=== PATIENT | male | born 1940 | race Caucasian/White ===

== ENCOUNTER → 2017-04-05 | Outpatient (CLI) | payer OTHER ==
[~2017-04-05] MED LIST: ACETAMINOPHEN325 M1 PO; ADULT LOW DOSE81 MG PO; ADULTS' DAILY1 EACH PO; ALLEGRA180 MG PO; ALLEGRA60 MG PO; ASPIRIN EC325 M1 PO; ASPIRIN EC81 M1 PO; ASPIRIN325 PO; ATORVASTATIN CA40 MG PO; BETAPACE AF80 MG PO; CARVEDILOL12.5 MG PO; CARVEDILOL25 MG PO; CINNAMON PLUS1 EACH PO; CINNAMON PO; CIPROFLOXACIN500 M3 PO; CLARITIN10 M3 PO; COLACE 100 MG100 MG PO; COREG PO; COREG25 MG PO; EFFIENT10 MG PO; FISH OIL 1,0001 EAC5 PO; FLOMAX PO; FLONASE 0.05%50 MCG NASAL; FLOVENT HFA 1110 MCG INH; FOLIC ACID1 MG PO; GLUCOSAMINE CH1 EAC2 PO; IRBESARTAN75 MG PO; LIPITOR40 MG PO; NEXIUM40 MG PO; NITROGLYCERIN0.4 MG SL; NORCO 5-325 TA1 EACH PO; PACERONE 200 M200 M1 PO; PEPCID AC20 M1 PO; PHENERGAN 25 MG25 M1 PO; PRINIVIL20 MG PO; PROTONIX40 M2 PO; SIMVASTATIN40 MG PO; TAMSULOSIN HCL0.4 M1 PO; TRICOR145 MG PO; VALACYCLOVIR1000 MG PO; VITAMIN E400 UNIT PO; ZANTAC 150MG T150 MG PO; ZOCOR40 MG PO; ZPAK PO
== END ==
LOC: NUC 08:22
DX: I25.5 Ischemic cardiomyopathy (principal)

== ENCOUNTER → 2017-08-08 | Outpatient (CLI) | payer OTHER ==
--- NOTE | ~2017-08-08 | 2DMMODE ---
[facility] [place] [address] 2 D/M-MODE ECHOCARDIOGRAM Name: MIKHAILSYMONEEVATATUM Gonzalez Room #: REG [facility]#: [id number] Admission: 08/08/17 Attend Phys: Josh Stanley, Discharge: Date of : 44 Date of Service: 08/08/17 1121 Report #: [id number] THIS REPORT FOR: //name// APPROVED REPORT Study performed: 08/08/2017 09:56:24 EXAM: Comprehensive 2D, Doppler, and color-flow Echocardiogram Patient Location: Out-Patient Status: routine BSA: 2.12 HR: 54 bpm BP: 125/65 mmHg Rhythm: NSR Other Information Study Quality: Good Indications ASHBY, ISCM. 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 Time: 237.49 ms MV E Max Jose Angel.: 1.23 m/s [facility] [place] [address] 2 D/M-MODE ECHOCARDIOGRAM Name: TATUM BLACKWELL Room #: [facility] Lyndsay#: [id number] Admission: 08/08/17 Attend Phys: Josh Stanley, Discharge: Date of : 44 Date of Service: 08/08/17 1121 Report #: [id number] MV A Jose Angel.: 1.05 m/s MV PHT: 68.87 ms IVRT: 69.20 ms Pulmonary Valve PV Peak Jose Angel.: 0.83 m/s PV Peak Gr.: 2.73 mmHg Pulmonary Vein P Vein S: 0.70 m/s P Vein A: 0.28 m/s P Vein D: 0.72 m/s P Vein A Dur.: 101.5 msec P Vein S/D Ratio: 0.97 Tricuspid Valve TR Peak Jose Angel.: 2.55 m/s RAP Estimate: 5.00 mmHg TR Peak Gr.: 25.95 mmHg PA Pressure: 31.00 mmHg Left Ventricle Left ventricle is mildly dilated. There is normal left ventricular wall thickness. Left ventricular systolic function is low normal. LVEF is 50%. Moderate diastolic dysfunction is present (pseudonormal filling). Right Ventricle The right ventricle is normal size. The right ventricular systolic function is normal. Atria Left atrium is mildly dilated. Right atrium is mildly dilated. Aortic Valve The aortic valve is normal in structure. Mild aortic regurgitation. There is no aortic valvular stenosis. Mitral Valve The mitral valve is normal in structure. Mild mitral annular calcification. Moderate mitral regurgitation. Tricuspid Valve The tricuspid valve is normal in structure. Mild tricuspid regurgitation. Estimated PAP is 30-35mmHg. Pulmonic Valve The pulmonary valve is normal in structure. Mild pulmonic regurgitation. [facility] [place] [address] 2 D/M-MODE ECHOCARDIOGRAM Name: TATUM BLACKWELL Room #: REG [facility] Hugo#: [id number] Admission: 08/08/17 Attend Phys: Josh Stanley, Discharge: Date of : 44 Date of Service: 08/08/17 1121 Report #: [id number] [place] Vessels Aortic root is mildly dilated at 4.0cm The ascending aorta is normal in size. IVC is normal in size and collapses >50% with inspiration. Pericardium There is no pericardial effusion. <Conclusion> Left ventricle is mildly dilated. Left ventricular systolic function is low normal. LVEF is 50%. Moderate diastolic dysfunction is present (pseudonormal filling). The right ventricle is normal size. Left atrium is mildly dilated. Right atrium is mildly dilated. Moderate mitral regurgitation. The mitral valve is normal in structure. Mild mitral annular calcification. The pulmonary valve is normal in structure. Aortic root is mildly dilated at 4.0cm There is no pericardial effusion. <ELECTRONICALLY SIGNED> By: Josh Stanley MD, FACC 08/08/17 1121 112 112 Josh Stanley MD, FACC /INF
== END ==
LOC: CV 07:55
DX: I50.30 Unspecified diastolic (congestive) heart failure (principal); I34.0 Nonrheumatic mitral (valve) insufficiency